=== PATIENT | male | born 1965 | race Caucasian/White ===

== ENCOUNTER 2016-09-05 09:59 | Emergency (ER) | payer MEDICAID, OTHER ==
[~2016-09-05] VITALS: Ht 175.3 cm; Wt 200.0 kg
[~2016-09-05 09:59] MED LIST: NO MEDS
[2016-09-05] MEDS ORDERED: INSULIN REGULAR, HUMAN 100 UNITS/ML IVP ONE ×3 (10:15→12:00)
[2016-09-05] MEDS ORDERED: SODIUM CHLORIDE 0.9% 2,000 ML IV ONE (10:15)
[2016-09-05 10:21] LABS: GLUCOSE,POINT OF CARE 290 MG/DL (70-110)
[2016-09-05 10:34] LABS: BASOPHILS % (AUTO) 0.3 % (0.0-2.0); EOSINOPHILS % (AUTO) 1.1 % (1.0-6.0); HEMATOCRIT 45.6 % (41-53); HEMOGLOBIN 15.5 g/dL (13.5-17.5); LYMPHOCYTES % (AUTO) 28.6 % (22.0-44.0); MEAN CORPUSCULAR HEMOGLOBIN 30.4 pg (26.0-34.0); MEAN CORPUSCULAR HGB CONC 34.1 G/dL (31.0-37.0); MEAN CORPUSCULAR VOLUME 89 fL (80-100); MONOCYTES # (AUTO) 0.5 K/uL (0.1-1.0); NEUTROPHILS # (AUTO) 4.5 K/uL (1.8-7.7); PLATELET COUNT (AUTO) 230 K/uL (150-450); RED CELL DISTRIBUTION WIDTH 12.8 % (11.5-14.5); WHITE BLOOD COUNT (AUTO) 7.2 K/uL (4.5-11.0)
[2016-09-05 10:52] LABS: ANION GAP 11 mmol/L (8-16); CALCIUM, TOTAL 8.9 mg/dL (8.8-10.5); CARBON DIOXIDE 26 mmol/L (22-29); CHLORIDE 101 mmol/L (98-107); CREATININE 0.96 mg/dL (0.60-1.30); GLOMERULAR FILTR. RATE CALC > 60 mL/min (>60); POTASSIUM 4.3 mmol/L (3.5-5.1); SODIUM SERUM 138 mmol/L (136-145); UREA NITROGEN, BLOOD 11 mg/dL (7-18)
[2016-09-05 10:57] LABS: ALANINE AMINOTRANSFERASE 33 U/L (12-78); ALBUMIN 3.7 g/dL (3.4-5.0); ASPARTATE AMINOTRANSFERASE 14 U/L (15-37); BILIRUBIN,TOTAL 0.5 mg/dL (0.1-1.0); TOTAL PROTEIN, SERUM 7.1 g/dL (6.4-8.2)
[2016-09-05 11:01] LABS: B-TYPE NATRIURETIC PEPTIDE 14 pg/mL (0-100)
[2016-09-05 11:37] LABS: GLUCOSE,POINT OF CARE 305 MG/DL (70-110)
[2016-09-05] MEDS ORDERED: MetFORMIN HCL 500 MG TABLET PO ONE (12:00)
[2016-09-05] MEDS ORDERED: SODIUM CHLORIDE 0.9% 1,000 ML IV ONE (12:00)
[2016-09-05] MEDS ORDERED: MECLIZINE HCL 25 MG TABLET PO ONE (12:00)
[2016-09-05 12:43] LABS: APPEARANCE,URINE CLEAR (CLEAR); GLUCOSE, URINE (UA) >=1000 mg/dL (NEGATIVE); KETONES,URINE NEGATIVE (NEGATIVE); LEUKOCYTE ESTERASE ,URINE NEGATIVE (NEGATIVE); OCCULT BLOOD,URINE NEGATIVE (NEGATIVE); PROTEIN,URINE NEGATIVE (NEGATIVE)
[2016-09-05 12:49] LABS: ADD UA MICROSCOPIC YES
[2016-09-05 13:09] LABS: RBC,URINE None Seen /HPF (0-2); SQUAMOUS EPITHELIAL CELL,UR Rare /LPF (None Seen); WBC,URINE None Seen /HPF (0-5)
[2016-09-05 13:22] LABS: GLUCOSE,POINT OF CARE 225 MG/DL (70-110)
[2016-09-05 14:25] VITALS: BP 136/82
== END 2016-09-05 14:32 | disposition home or self-care (01) ==
LOC: EMS 10:01
DX: H81.393 Other peripheral vertigo, bilateral (principal); E11.65 Type 2 diabetes mellitus with hyperglycemia
CPT/HCPCS: 36415; 80053; 81001; 82962; 83690; 83880; 84484; 85025; 93005; 96361; 96374; 96376; 99285; J1815; J7030; 96375

== ENCOUNTER 2016-10-23 19:16 | Emergency (ER) | payer OTHER ==
[~2016-10-23] VITALS: Ht 167.6 cm; Wt 100.0 kg
[2016-10-23] MEDS ORDERED: [UNRECOGNIZED DRUG - REMARK] PO (19:45)
[2016-10-23] MEDS ORDERED: ACETAMINOPHEN/CODEINE 300-30 MG TABLET PO ONE (20:30)
[2016-10-23] MEDS ORDERED: PERTUSS(ACELL),DIPH,TET VAC/PF 0.5 ML VIAL IM ONE (20:30)
[2016-10-23 21:51] VITALS: BP 130/87
== END 2016-10-23 22:34 | disposition home or self-care (01) ==
LOC: EMS 19:17
DX: S91.332A Puncture wound without foreign body, left foot, initial encounter (principal); E11.9 Type 2 diabetes mellitus without complications; W45.0XXA Nail entering through skin, initial encounter; Y93.89 Activity, other specified; Y92.89 Other specified places as the place of occurrence of the external cause; Y99.8 Other external cause status
CPT/HCPCS: 82962; 90471; 90715; 99284

== ENCOUNTER 2018-04-28 10:17 | Emergency (ER) | payer OTHER ==
[~2018-04-28] VITALS: Ht 172.7 cm; Wt 106.8 kg
[~2018-04-28 10:17] MED LIST changes: -NO MEDS; +[UNRECOGNIZED DRUG - REMARK] PO
[2018-04-28] MEDS ORDERED: METF-960 PO (10:25)
[2018-04-28 10:34] LABS: GLUCOSE,POINT OF CARE 342 MG/DL (70-110)
[2018-04-28] MEDS ORDERED: IBUPROFEN 800 MG TABLET PO ONE (13:30)
[2018-04-28 13:54] VITALS: BP 154/84
== END 2018-04-28 14:02 | disposition home or self-care (01) ==
LOC: EMS 10:18
DX: L03.011 Cellulitis of right finger (principal); E11.65 Type 2 diabetes mellitus with hyperglycemia; Z79.84 Long term (current) use of oral hypoglycemic drugs

== ENCOUNTER 2019-02-11 21:11 | Emergency (ER) | payer OTHER ==
[~2019-02-11 21:11] MED LIST changes: +METF-960 PO; -[UNRECOGNIZED DRUG - REMARK] PO
[2019-02-11] MEDS ORDERED: CeFAZolin 1 GM/DEXTROSE 50 ML IV ONE (22:15)
[2019-02-11] MEDS ORDERED: MUPIROCIN CALCIUM 2% 22 GM OINTMENT TP ONE (22:45)
[2019-02-11 22:58] LABS: BASOPHILS % (AUTO) 0.4 % (0.0-2.0); EOSINOPHILS % (AUTO) 1.4 % (1.0-6.0); HEMATOCRIT 37.7 % (41-53); HEMOGLOBIN 12.9 g/dL (13.5-17.5); LYMPHOCYTES # (AUTO) 1.9 K/uL (1.0-4.8); LYMPHOCYTES % (AUTO) 17.4 % (22.0-44.0); MEAN CORPUSCULAR HEMOGLOBIN 30.6 pg (26.0-34.0); MEAN CORPUSCULAR HGB CONC 34.2 G/dL (31.0-37.0); MEAN CORPUSCULAR VOLUME 90 fL (80-100); MONOCYTES % (AUTO) 9.4 % (2.0-9.0); NEUTROPHILS # (AUTO) 7.8 K/uL (1.8-7.7); NEUTROPHILS % (AUTO) 71.4 % (40.0-70.0); PLATELET COUNT (AUTO) 265 K/uL (150-450); RED BLOOD CELL COUNT(AUTO) 4.21 MIL/uL (4.50-5.90); RED CELL DISTRIBUTION WIDTH 13.2 % (11.5-14.5)
[2019-02-11 23:04] VITALS: BP 137/66
[2019-02-11 23:19] LABS: ANION GAP 8 mmol/L (8-16); CALCIUM, TOTAL 8.3 mg/dL (8.8-10.5); CARBON DIOXIDE 25 mmol/L (22-29); CHLORIDE 101 mmol/L (98-107); CREATININE 0.94 mg/dL (0.60-1.30); GLOMERULAR FILTR. RATE CALC > 60 mL/min (>60); GLUCOSE,RANDOM 169 mg/dL (70-110); SODIUM SERUM 134 mmol/L (136-145); UREA NITROGEN, BLOOD 15 mg/dL (7-18)
[2019-02-11 23:25] LABS: ALANINE AMINOTRANSFERASE 23 U/L (12-78); ALBUMIN 3.2 g/dL (3.4-5.0); ALKALINE PHOSPHATASE 69 U/L (46-116); ASPARTATE AMINOTRANSFERASE 14 U/L (15-37); BILIRUBIN,TOTAL 0.3 mg/dL (0.1-1.0); TOTAL PROTEIN, SERUM 7.1 g/dL (6.4-8.2)
== END 2019-02-11 23:17 | disposition home or self-care (01) ==
LOC: EMS 21:12
DX: L03.116 Cellulitis of left lower limb (principal); E11.9 Type 2 diabetes mellitus without complications; Z79.84 Long term (current) use of oral hypoglycemic drugs
CPT/HCPCS: 36415; 80053; 85025; 96365; 99283; J0690

== ENCOUNTER 2019-03-20 18:30 | Emergency (ER) | payer OTHER ==
[~2019-03-20] VITALS: Ht 175.3 cm; Wt 109.0 kg
[2019-03-20 19:42] LABS: GLUCOSE,POINT OF CARE 129 MG/DL (70-110)
[2019-03-20] MEDS: KETOROLAC TROMETHAMINE 60 MG/2 ML VIAL IM ONE (20:38)
[2019-03-20] MEDS: CYCLOBENZAPRINE HCL 10 MG TABLET PO ONE (20:38)
[2019-03-20 22:32] VITALS: BP 142/84
== END 2019-03-20 23:04 | disposition home or self-care (01) ==
LOC: EMS 18:37
DX: M54.2 Cervicalgia (principal); R03.0 Elevated blood-pressure reading, without diagnosis of hypertension; E11.9 Type 2 diabetes mellitus without complications; Z79.84 Long term (current) use of oral hypoglycemic drugs
CPT/HCPCS: 72125; 82962; 96372; 99284; J1885

== ENCOUNTER 2024-05-29 19:00 | Emergency (ER) | payer SELFPAY ==
[~2024-05-29] VITALS: Ht 177.8 cm; Wt 112.4 kg
[~2024-05-29 19:00] MED LIST changes: +CLIN300C58 PO; +GLIP5TAB16 PO; +LEVO250T75 PO; -METF-960 PO
[2024-05-29 19:05] VITALS: BP 164/88; PULSE 63; RESP 18; TEMP 98.4; O2SAT 100
[2024-05-29 19:30] LABS: GLUCOMETER DEV NAME(LOC) ERT.6; GLUCOSE,POINT OF CARE 85 MG/DL (70-110)
[2024-05-29 20:59] LABS: BASOPHILS % (AUTO) 0.8 % (0.0-2.0); EOSINOPHILS % (AUTO) 3.9 % (1.0-6.0); HEMATOCRIT 44.5 % (41-53); HEMOGLOBIN 14.6 g/dL (13.5-17.5); LYMPHOCYTES # (AUTO) 1.4 K/uL (1.0-4.8); LYMPHOCYTES % (AUTO) 20.5 % (22.0-44.0); MEAN CORPUSCULAR HEMOGLOBIN 29.4 pg (26.0-34.0); MEAN CORPUSCULAR HGB CONC 32.9 G/dL (31.0-37.0); MEAN CORPUSCULAR VOLUME 89 fL (80-100); MONOCYTES # (AUTO) 0.5 K/uL (0.1-1.0); MONOCYTES % (AUTO) 8.1 % (2.0-9.0); NEUTROPHILS # (AUTO) 4.5 K/uL (1.8-7.7); NEUTROPHILS % (AUTO) 66.7 % (40.0-70.0); PLATELET COUNT (AUTO) 233 K/uL (150-450); RED BLOOD CELL COUNT(AUTO) 4.99 MIL/uL (4.50-5.90); RED CELL DISTRIBUTION WIDTH 14.9 % (11.5-14.5); WHITE BLOOD COUNT (AUTO) 6.8 K/uL (4.5-11.0)
[2024-05-29 21:05] LABS: ANION GAP 8 mmol/L (8-16); CALCIUM, TOTAL 8.9 mg/dL (8.8-10.5); CARBON DIOXIDE 24 mmol/L (22-29); CHLORIDE 106 mmol/L (98-107); CREATININE 1.45 mg/dL (0.60-1.30); GLOMERULAR FILTR. RATE CALC 49 mL/min (>60); GLUCOSE,RANDOM 83 mg/dL (70-110); POTASSIUM 5.5 mmol/L (3.5-5.1); SODIUM SERUM 138 mmol/L (136-145); UREA NITROGEN, BLOOD 32 mg/dL (7-18)
[2024-05-29 21:21] LABS: TROPONIN I-HIGH SENSITIVITY 240 ng/L (<76)
[2024-05-29] MEDS: ASPIRIN 325 MG TABLET PO ONE (22:09)
[2024-05-29] MEDS: SODIUM ZIRCONIUM CYCLOSILICATE 5 GM POWDER PACKET PO ONE (22:09)
[2024-05-29 23:48] LABS: TROPONIN I-HIGH SENSITIVITY 208 ng/L (<76)
== END 2024-05-30 00:53 | disposition admitted as inpatient to this hospital (09) ==
LOC: EMS 19:00
DX: I42.9 Cardiomyopathy, unspecified (principal); R60.0 Localized edema; R42 Dizziness and giddiness; H53.8 Other visual disturbances; E11.9 Type 2 diabetes mellitus without complications; E87.5 Hyperkalemia; N17.9 Acute kidney failure, unspecified; Z91.148 Patient's other noncompliance with medication regimen for other reason
CPT/HCPCS: 70450; 71045; 80048; 82962; 84484; 85025; 93005; 99291; 36415-L1; 36415-TC